=== PATIENT | female | born 1985 | race Caucasian/White ===

== ENCOUNTER 2019-05-17 18:59 | Emergency (ER) | payer OTHER ==
[~2019-05-17] VITALS: Ht 165.1 cm; Wt 54.4 kg
[~2019-05-17 18:59] MED LIST: CIPROFLOXACIN500 M1 PO; METHADONE HCL40 MG PO; NAPROSYN500 MG PO; XANAX 0.5 MG0.5 M1 PO
[2019-05-17] MEDS ORDERED: GRISEOFULVIN500 MG PO (19:35)
[2019-05-17 20:00] LABS: ABSOLUTE NEUTROPHILS 6.6 thou/uL (1.4-8.2); BASOPHILS 0.2 % (0.0-2.0); EOSINOPHILS 0.5 % (0.0-3.0); HEMOGLOBIN 13.8 gm/dL (12.0-15.0); LYMPHOCYTES 18.9 % (24.0-44.0); MCH 32.3 pg (26.0-34.0); MCHC 34.5 g/dL (28.0-37.0); MCV 93.8 fL (80.0-100.0); MONOCYTES 8.9 % (1.0-8.0); PLATELET COUNT 251 thou/uL (150-400); POLYS 71.5 % (36.0-66.0); RBC 4.27 mil/uL (4.20-5.00); WBC 9.2 thou/uL (4.0-11.0)
[2019-05-17] MEDS ORDERED: BACTRIM DS TAB1 EACH PO (21:32)
[2019-05-17] MEDS ORDERED: ACYCLOVIR 400400 MG PO (21:32)
[2019-05-17] MEDS ORDERED: KEFLEX500 M1 PO (21:32)
[2019-05-17] MEDS ORDERED: NORCO 5-325 TA1 EAC1 PO (21:32)
[2019-05-17 22:15] VITALS: BP 118/76
[2019-05-18 08:48] LABS: HSV PCR SOURCE FOOT
[2019-05-19 18:07] LABS: SYPHILIS AB Negative (Negative)
[2019-05-20 16:08] LABS: HSV 1 DNA Negative (Negative); HSV 2 DNA Negative (Negative)
== END 2019-05-17 22:17 | disposition home or self-care (01) ==
LOC: ER 18:59
PROVIDERS: Emergency Medicine
DX: L03.115 Cellulitis of right lower limb (principal); L01.03 Bullous impetigo; F17.210 Nicotine dependence, cigarettes, uncomplicated

== ENCOUNTER 2019-05-20 17:23 | Inpatient (IN) | payer OTHER ==
[~2019-05-20] VITALS: Ht 165.1 cm; Wt 54.4 kg
[~2019-05-20 17:23] MED LIST changes: +ACYCLOVIR 400400 MG PO; +BACTRIM DS TAB1 EACH PO; +GRISEOFULVIN500 MG PO; +KEFLEX500 M1 PO; +NORCO 5-325 TA1 EAC1 PO
[2019-05-20 17:39] VITALS: BP 103/64
[2019-05-20 18:32] LABS: ABSOLUTE NEUTROPHILS 2.6 thou/uL (1.4-8.2); BASOPHILS 0.4 % (0.0-2.0); EOSINOPHILS 1.4 % (0.0-3.0); HEMATOCRIT 40.6 % (37.0-47.0); HEMOGLOBIN 13.9 gm/dL (12.0-15.0); LYMPHOCYTES 30.3 % (24.0-44.0); MCH 32.2 pg (26.0-34.0); MCHC 34.4 g/dL (28.0-37.0); MCV 93.7 fL (80.0-100.0); PLATELET COUNT 289 thou/uL (150-400); POLYS 55.9 % (36.0-66.0); RBC 4.33 mil/uL (4.20-5.00); WBC 4.6 thou/uL (4.0-11.0)
[2019-05-20 18:40] LABS: CALCIUM 8.4 mg/dL (8.5-10.1); CREATININE 0.9 mg/dL (0.6-1.0); POTASSIUM 3.7 mmol/L (3.5-5.1)
[2019-05-20 18:46] LABS: ALBUMIN 3.6 g/dL (3.4-5.0); TOTAL BILIRUBIN 0.2 mg/dL (<0.1-1.0); TOTAL PROTEIN 6.5 g/dL (6.4-8.2)
[2019-05-20 18:47] LABS: APTT 31.7 Seconds (24.5-32.8); PROTIME 10.3 Seconds (9.3-11.4)
[2019-05-20 20:39] LABS: URINE BILIRUBIN NEGATIVE (Negative); URINE BLOOD NEGATIVE (Negative); URINE CLARITY CLEAR; URINE COLOR YELLOW; URINE GLUCOSE-RANDOM* NEGATIVE (Negative); URINE KETONES NEGATIVE (Negative); URINE LEUKOCYTES NEGATIVE (Negative); URINE NITRITE NEGATIVE (Negative); URINE PROTEIN (DIPSTICK) NEGATIVE (Negative); URINE UROBILINOGEN 0.2 E.U./dl (0.2-1.0)
[2019-05-20 21:31] VITALS: BP 110/65
[2019-05-20 21:50] VITALS: BP 110/65
[2019-05-20 22:00] VITALS: BP 126/85
--- NOTE | 2019-05-21 04:00 | NUR ---
ASSUMED CARE OF PT AT 2200HRS. PT IS AOX4 AND WAS ABLE ANSWER ALL ADMISSION QUESTIONS. PT WAS ORIENTED TO THE ROOM AND THE UNIT. VITAL SIGN STABLE AND NO S/S OF ACUTE DISTRESS. ABX TREATMENTS INITIATED. THE NIGHT PROGRESSED, PT WAS ABLE TO GET COMFORTABLE AND GET SOME SLEEP. NO OTHER COMPLAINTS OF PAIN OR N/V. WILL CONTINUE TO MONITOR.
[2019-05-21 05:45] LABS: HEMATOCRIT 39.5 % (37.0-47.0); HEMOGLOBIN 13.3 gm/dL (12.0-15.0); MCH 32.1 pg (26.0-34.0); MCHC 33.8 g/dL (28.0-37.0); RBC 4.16 mil/uL (4.20-5.00); RDW 12.9 % (10.5-14.5); WBC 4.6 thou/uL (4.0-11.0)
[2019-05-21 05:55] LABS: CALCIUM 8.3 mg/dL (8.5-10.1); CREATININE 0.8 mg/dL (0.6-1.0); POTASSIUM 4.4 mmol/L (3.5-5.1)
[2019-05-21 07:17] VITALS: BP 100/51
--- NOTE | 2019-05-21 08:16 | NUR ---
assessment: CM REVIEWED CHART AND MET WITH PATIENT AT THE BEDSIDE. PT WAS ADMITTED WITH RIGHT FOOT CELLULITIS. PT IS ALERT AND ORIENTED X4. PT REPORTS SHE LIVES IN A HOUSE WITH HER FATHER, HER 2 CHILDREN, AND TWO OTHER ROOMATES. PT REPORTS THAT SHE AMBULATES INDEPENDENTLY AND IS INDEPENDENT WITH ADLS. CM DISCUSSED ROLE. CM ASKED IF PATIENT HAD A PCP AND SHE REPORTS SHE DOES NOT CURRENTLY. CM ENCOURAGED PT TO CALL THE NUMBER ON THE BACK OF HER INSURANCE CARD TO FIND PROVIDERS WHO WERE IN NETWORK WITH HER INSURANCE AND TO ESTABLISH A PCP SOON POSSIBLE AND SHE WILL LIKELY NEED FOLLOW UP CARE. PT REPORTED UNDERSTANDING. PT REPORTS SHE HAS NOT HAD HH IN THE PAST. CM WILL CONTINUE TO FOLLOW TO ASSIST NEEDED.
--- NOTE | 2019-05-21 09:07 | NUR ---
Consulted for wound. Admitted w/ R foot cellulitis, on IV antibiotics. Note consult to ID. Chart reviewed, provider note indicates extensive edema in R foot/ankle. Pt on a regular diet, no meal records yet recorded. On interview this AM, pt ate 100% of boxed meal last night and was eating well at breakfast -very hungry. Education provided on goal of 1-2 protein sources/meal and protein foods identified. Weight is stable, 120#, with reported range of 115-130#. Protein supplement options presented, but pt did not feel they were needed at present. Remains a low nutrition risk.
[2019-05-21 16:30] VITALS: BP 107/60
--- NOTE | 2019-05-21 17:08 | NUR ---
PATIENT DOING WELL TODAY. MEDICATED WITH HYDROCODONE FOR RT FOOT PAIN WITH GOOD PAIN RELIEF. DR. CALL VISITED AND 2 PUNCH BIOPSY'S OF RT FOOT TAKEN. GAUZE DRESSIMG APPLIED AND SECURED WITH COBAN. WILL NEED DAILY DRESSING CHANGES WITH SOAP AND WATER. ALSO IS TO HAVE SUTURES REMOVED IN 14 DAYS. UP TO BATHROOM INDEPENDENTLY AND TOLERATING WELL. TOE TOUCHES ON RT FOOT. ICE BAG APPLIED TO RT FOOT. TOLERATING DIET WELL. VERY PLEASANT AND COOPERATIVE.
[2019-05-21 17:39] LABS: AMP/METHAMP Negative (Negative); BARBITURATES Negative (Negative); BENZODIAZEPINES Negative (Negative); COCAINE Negative (Negative); METHADONE Negative (Negative); OPIATES POSITIVE (Negative); PCP Negative (Negative)
[2019-05-21 20:05] VITALS: BP 131/67
[2019-05-22 03:35] VITALS: BP 113/71
[2019-05-22 07:40] LABS: HEMATOCRIT 35.7 % (37.0-47.0); HEMOGLOBIN 12.3 gm/dL (12.0-15.0); MCH 32.4 pg (26.0-34.0); MCHC 34.3 g/dL (28.0-37.0); MCV 94.5 fL (80.0-100.0); RBC 3.78 mil/uL (4.20-5.00); RDW 13.1 % (10.5-14.5); WBC 7.1 thou/uL (4.0-11.0)
[2019-05-22 07:52] LABS: CALCIUM 8.2 mg/dL (8.5-10.1); CREATININE 0.8 mg/dL (0.6-1.0)
[2019-05-22 08:18] VITALS: BP 112/64
--- NOTE | 2019-05-22 08:18 | NUR ---
Assumed care at 1845. Pt resting in bed. AOX4. VSS. Gave hydrocodone for right foot pain twice. Dressing on right foot CDI. Applied ice pack on right foot. No identified needs at the moment. Call light within reach. Will continue to monitor.
--- NOTE | 2019-05-22 09:17 | HC ---
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 She was treated with griseofulvin in the past with improvement. She never had any lesions on the left foot or hands. It is only on the right foot. She had HSV 1 and 2 tested on the right foot toes, were negative 4 days ago in the ER and the cultures revealed Staphylococcus aureus and gram-negative rods. The patient was discharged from the ER on 05/17/2019 on Keflex, Bactrim, acyclovir and [place]. 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 She can tell me exactly to the hour when she acquired these condition in [place] in a swimming pool area. The patient has developed recurrent blistering lesions in the right foot, particularly lateral aspect, also on the sole of the foot. PAST MEDICAL HISTORY: Recurrent eruptions right foot, possible fungal in nature, treated with oral antifungus with improvement (griseofulvin). DRUG ALLERGIES: None listed. MEDICATIONS: The patient is currently on treatment with senna docusate 2 b.i.d., nicotine 21 mg patch daily. Some medications that is labeled home medications are stored in pharmacy. Unfortunately, no name given for the medications that she uses at home that is a real bright idea. She is also on Zosyn 3.375 grams IV every 8 hours, hydrocodone one tablet every 4 hours if needed, acetaminophen 650 q.4h. p.r.n., ondansetron 4 mg IV q.4h. p.r.n., vancomycin 750 mg IV every 12 hours. The patient also has received a single dose of methylprednisolone 125 mg t.i.d. SOCIAL HISTORY: See H and P, old records. FAMILY HISTORY: See H and P, old records. REVIEW OF SYSTEMS: Noncontributory. PHYSICAL EXAMINATION: GENERAL: Well-developed, thin woman. VITAL SIGNS: Temperature maximum 99.5, pulse 54, respirations 18, BP 100/51 [place] [address] CONSULTATION Name: KAVITHA GAINES Room #: 449-I ADM IN .R.#: [id number] Admission: 05/20/19 ������������������ Attend Phys: Imer Bob MD Discharge: ������������������ Date of : 83 Report #: [id number] low as 98/63 on admission. HEENMT: Within range. NECK: Supple. BREASTS: Deferred. LUNGS: Clear. HEART: S1, S2. ABDOMEN: Soft, no masses or megaly. PELVIC AND RECTAL: Deferred. EXTREMITIES: Reveal lesions over the lateral aspect of the right foot in a linear distribution, blistering lesions in between the fourth and fifth toe and lesions on the sole of the foot. Most definitely these lesions not typical for dermatomycosis though obviously I may be wrong and I am having optical advisor passing opinion regarding this. LABORATORY DATA: Sodium, potassium, BUN and creatinine all normal. Glucose elevated at 205, albumin 3.6. WBC 4600, hemoglobin 13.9, platelets 289,000, the white blood cell count differential 55% segmented neutrophils, 30% lymphocytes. ESR 6 mm per hour on 05/17/2019, 9 mm per hour yesterday. C-reactive protein 106.1 on 05/17/2019, 41.2 yesterday. HSV 1 and 2 negative by PCR. MICROBIOLOGY DATA: Obtained on 05/17/2019 revealed gram-negative rods and Staphylococcus aureus. We do not have the identification of the gram-negative rods or sensitivity of the Staphylococcus aureus. RADIOLOGY EVALUATION: A CT scan of the lower extremities reveal old surgical degenerative changes, bony structures without acute bone destruction and subcutaneous edema. ASSESSMENT: 1. Recurrent lesions over the right foot lateral aspect on the sole of the foot, question etiology. I suspect it could be dermatomycosis but not sure. 2. Mild elevation of CRP and improving. 3. Normal ESR. 4. Negative HSV 1 and 2 by PCR. SUGGESTIONS: Dermatology consultation with Dr. Dixon. If he diagnosed as dermatomycosis, I suspect the patient may benefit from Lamisil orally for several weeks to months. What I am almost 100% certain is she needs no IV fluids or intravenous antibiotics. Final decision as to what to treat her on an outpatient basis per hospitalist. I recommend coverage for Staphylococcus aureus with either Bactrim-DS 1 b.i.d. or doxycycline 100 mg b.i.d. for 7 to 10 days. [facility] [address] [place] [address] CONSULTATION Name: KAVITHA GAINES Room #: 449-I ADM IN M.R.#: [id number] Admission: 05/20/19 ������������������ Attend Phys: Imer Bob MD Discharge: ������������������ Date of : 83 Report #: [id number] Bob, thank you for requesting my suggestions. ��������������������������������������������� <ELECTRONICALLY SIGNED> ���������������������������������������� By: Zack De La Garza MD ��������������������������������������������� 05/22/19 0917 [id number] [id number] Zack De La Garza MD /nt
[2019-05-22 14:09] LABS: ANA INTERPRETATION Negative (Negative); ANTI-DNA SCREEN 1 IU/mL (0-9); ANTI-RNP <0.2 AI (0.0-0.9)
[2019-05-22 14:15] VITALS: BP 116/88
--- NOTE | 2019-05-22 20:42 | NUR ---
PATIENT ALERT AND ORIENTED AND COOPERATIVE WITH PLAN OF CARE. SHE IS CONCERNED THAT SHE COULD POSSIBLY LOOSE HER FOOT AND SHE HAS 2 CHILDREN TO TAKE CARE OF AND HER 68 YEAR OLD FATHER TO CARE FOR. SHE PLANS TO RETURN TO [place] ONCE HER FATHER'S NEEDS ARE MET. SHE IS ABLE TO TOE TOUCH WALK IN ROOM AND KEEPS HER LEG ELEVATED ON PILLOWS. SHE IS CONCERNED ABOUT RETURNING TO WORK AND PAYING BILLS AND WILL FREELY SHARE THAT [place] HAS FREE HEALTH CARE AND PAYS HER TO STAY HOME WITH HER CHILDREN. WOULD LIKE TO TALK WITH CASE MANAGEMENT ABOUT RESOURCES FOR HERSELF AND HER FATHER.
--- NOTE | 2019-05-23 05:06 | NUR ---
PATIENT ALERT AND ORIENTED X4. UP AD MARLINE. R FOOT SWOLLEN WITH DRESSING ON. SLEPT LITTLE THIS SHIFT. C/O PAIN X1, MED GIVEN
[2019-05-23 06:09] LABS: HEPATITIS C VIRUS AB 0.1 (0.0-0.9)
[2019-05-23 07:25] VITALS: BP 104/61
--- NOTE | 2019-05-23 11:33 | NUR ---
Received awake on bed. Due medications given as prescribed- able to swallow tablets w/o difficulty. A+Ox4. With SL at R AC- patent, flushing well. Pt up ad sharon. With R Foot cellulitis- dressing intact. Pt eating and drinking. With nicotine patch on, previous one removed from R upper back, new one placed on L upper back. Pt mentioned she did not get too much sleep last night and would like to sleep more this am- patient checked frequently and let her rest. Pt seen by Dr Bob - for discharge today.
[2019-05-23 13:42] VITALS: BP 123/72
[2019-05-23] MEDS ORDERED: KEFLEX500 M1 PO (14:28)
[2019-05-23] MEDS ORDERED: MINOCYCLINE 5050 M1 PO (14:28)
[2019-05-23 14:53] VITALS: BP 123/72
== END 2019-05-23 16:14 | disposition home or self-care (01) | DRG 603 ==
LOC: ER 17:23 → 4W 21:06 → EROBS 21:06 → 4W 21:51
PROVIDERS: Nurse Practitioner Family; Physician Assistant; Specialist; ADMIT Hospitalist
DX: L03.116 Cellulitis of left lower limb (principal); F17.210 Nicotine dependence, cigarettes, uncomplicated; D89.9 Disorder involving the immune mechanism, unspecified; Z79.899 Other long term (current) drug therapy; Z87.81 Personal history of (healed) traumatic fracture
CPT/HCPCS: 10040